=== PATIENT | male | born 1960 | race Caucasian/White ===

== ENCOUNTER 2018-10-08 10:26 | Emergency (ER) | payer SELFPAY ==
[~2018-10-08] VITALS: Ht 170.2 cm; Wt 100.0 kg
[2018-10-08] MEDS ORDERED: LOPRESSOR25 M1 PO (11:02)
[2018-10-08] MEDS ORDERED: LISINOPRIL2.5 MG PO (11:03)
[2018-10-08] MEDS ORDERED: PLAVIX75 MG PO (11:04)
[2018-10-08] MEDS ORDERED: PRANDIN1 MG PO (11:04)
[2018-10-08] MEDS ORDERED: LOVASTATIN10 MG PO (11:05)
[2018-10-08] MEDS ORDERED: VALIUM5 MG PO (11:05)
[2018-10-08] MEDS ORDERED: HYDROCHLOROT25 MG PO (11:05)
[2018-10-08] MEDS ORDERED: ASPIRIN81 MG PO (11:06)
[2018-10-08] MEDS ORDERED: TORADOL PO (11:21)
[2018-10-08 11:57] VITALS: BP 173/90
== END 2018-10-08 11:57 | disposition home or self-care (01) | DRG 605 ==
LOC: ED 10:26
DX: S90.32XA Contusion of left foot, initial encounter (principal); W18.49XA Other slipping, tripping and stumbling without falling, initial encounter; Y93.01 Activity, walking, marching and hiking; Y92.009 Unspecified place in unspecified non-institutional (private) residence as the place of occurrence of the external cause